=== PATIENT | male | born 1940 | race African-American/Black ===

== ENCOUNTER 2023-08-24 22:24 | Emergency (ER) | payer MEDICARE, MEDICAID ==
[~2023-08-24] VITALS: Ht 177.8 cm; Wt 54.0 kg
[2023-08-24 22:56] VITALS: BP 150/79; O2SAT 95
[2023-08-25 00:27] VITALS: PULSE 62; RESP 18; TEMP 97.8
== END 2023-08-25 00:28 | disposition home or self-care (01) ==
LOC: ER 22:24
DX: R20.2 Paresthesia of skin (principal)
CPT/HCPCS: 99281

== ENCOUNTER 2023-09-15 11:35 | Emergency (ER) | payer MEDICARE, MEDICAID ==
[~2023-09-15] VITALS: Ht 180.3 cm; Wt 66.0 kg
[2023-09-15 12:02] VITALS: BP 166/85; PULSE 61; RESP 20; TEMP 97.7; O2SAT 97
[2023-09-15] MEDS ORDERED: PERM60CR4 TP (12:05)
== END 2023-09-15 12:11 | disposition home or self-care (01) ==
LOC: ER 11:35
DX: R20.2 Paresthesia of skin (principal); F19.90 Other psychoactive substance use, unspecified, uncomplicated
CPT/HCPCS: 99282